=== PATIENT | male | born 1960 | race Caucasian/White ===

== ENCOUNTER 2019-03-08 16:18 | Emergency (ER) | payer BC ==
[2019-03-08] MEDS ORDERED: Succinylcholine 200 MG/10 ML MDV IV ONE (16:19)
--- NOTE | 2019-03-08 16:35 | EDM.PDOC ---
ED HPI GENERAL MEDICAL PROBLEM - General Chief Complaint: CPR in Progress Stated Complaint: CODE BLUE Time Seen by Provider: 03/08/19 16:34 Source of Information: Reports: Patient - History of Present Illness INITIAL COMMENTS - FREE TEXT/NARRATIVE: HISTORY AND PHYSICAL: History of present illness: [Presents with cold blue status, found down in [place] for unknown duration at 3 PM, he arrives shortly after 16: 15 to our ER, he had etomidate on board provided by EMS , they were unable to intubate, we did intubate on arrival O2 sats were50- 60% initially, unknown how long patient's O2 sat was in the 50-60% range , however, O2 sats 90s shortly after intubation. At the initial scene chest compressions were performed by ulcers by the initially found him, EMS arrival he had some pulseless V. tach and was provided a shock of 300 J pt Became hemodynamically stable with pulse rhythm consistent with SVTand V tach rate 160s on arrival we did provide a shock of 200 J, rate improved to 120 patient maintains a pulse O2 sat 95% after intubation Further information, lab is pending at time of dictation, fall drip initiated] after 12 lead ekg performed was obtained, posterior HI om ekg Pressure and arrives on arrival was initially 220s over 140s, this has improved to 150s over 80s at current Review of systems: As per history of present illness and below otherwise all systems reviewed and negative. Past medical history: As per history of present illness and as reviewed below otherwise noncontributory. Surgical history: As per history of present illness and as reviewed below otherwise noncontributory. Social history: No reported history of drug or alcohol abuse. Family history: As per history of present illness and as reviewed below otherwise noncontributory. Physical exam: HEENT: Atraumatic, normocephalic, pupils 2 millimeters, negative for conjunctival pallor or scleral icterus, mucous membranes moist, throat clear, neck supple, nontender, trachea midline. Lungs: Clear to auscultation, breath sounds equal bilaterally, chest nontender. Heart: S1S2, regular, negative for clicks, rubs, or JVD. Abdomen: Soft, nondistended, nontender. Negative for masses or hepatosplenomegaly. Negative for costovertebral tenderness. Pelvis: Stable nontender. Genitourinary: Deferred. Rectal: Deferred. Extremities: Atraumatic, vascular unremarkable. Neuro: GCS 3 on arrival Diagnostics: [CBC CMP UA troponin INR ] Therapeutics: [Lovenox 150 mg] sc Total fall drip Shock of 200 J Symptoms Vancomycin Impression: [Glascow coma scale 3 on arrival Hypoxia improved with intubation Acute coronary syndrome -post cardioversion and BLS likely aspiration hemodynamically dynamic stable at current Pulseless V. tach, V. tach, SVT you version with 300 J, 200 J on arrival Definitive disposition and diagnosis as appropriate pending reevaluation and review of above. - Related Data Allergies Allergy/AdvReac Type Severity Reaction Status Date / Time No Known Allergies Allergy Verified 03/02/15 04:04 Home Meds: Home Meds . [No Known Home Meds] 03/02/15 [History] ED ROS GENERAL - Review of Systems Review Of Systems: See Below ED EXAM, GENERAL - Physical Exam Exam: See Below Course - Orders/Labs/Meds Orders: Active Orders 24 hr Category Date Time Status Chest 1V Frontal [CR] Stat Exams 03/08/19 16:35 Taken ABG [BLOOD GAS ARTERIAL] [BG] Stat Lab 03/08/19 16:34 Ordered CBC WITH AUTO DIFF [HEME] Stat Lab 03/08/19 16:25 Received COMPREHENSIVE METABOLIC PN,CMP [CHEM] Stat Lab 03/08/19 16:25 Received INR,PT,PROTHROMBIN TIME [COAG] Stat Lab 03/08/19 16:25 Received TROPONIN I [CHEM] Stat Lab 03/08/19 16:25 Received UA RFX MARY AND CULT IF INDIC [URIN] Stat Lab 03/08/19 16:44 Ordered Piperacillin/Tazobactam [Piperacil-Tazobact] 3.375 gm Med 03/08/19 16:39 Active Sodium Chloride 0.9% [Normal Saline] 50 ml IV ONETIME Vancomycin 1 gm Med 03/08/19 16:39 Active Sodium Chloride 0.9% [Normal Saline (AdvBag)] 250 ml IV ONETIME Medication Orders Piperacillin Sod/Tazobactam (Sod 3.375 gm/ Sodium Chloride) 50 mls @ 100 mls/ hr IV ONETIME ONE Stop: 03/08/19 17:08 Vancomycin HCl 1 gm/ Sodium (Chloride) 250 mls @ 166 mls/hr IV ONETIME ONE Stop: 03/08/19 18:09 Meds: Medications Generic Name Dose Route Start Last Admin Trade Name Freq PRN Reason Stop Dose Admin Piperacillin Sod/Tazobactam 50 mls @ 100 mls/hr 03/08/19 16:39 Sod 3.375 gm/ Sodium Chloride IV 03/08/19 17:08 ONETIME ONE Vancomycin HCl 1 gm/ Sodium 250 mls @ 166 mls/hr 03/08/19 16:39 Chloride IV 03/08/19 18:09 ONETIME ONE Discontinued Medications Generic Name Dose Route Start Last Admin Trade Name Freq PRN Reason Stop Dose Admin Enoxaparin Sodium 150 mg 03/08/19 16:44 Lovenox SUBCUT 03/08/19 16:45 ONETIME ONE Enoxaparin Sodium Confirm 03/08/19 16:44 Lovenox Administered 03/08/19 16:45 Dose 150 mg .ROUTE .STK-MED ONE Sodium Chloride Confirm 03/08/19 16:42 Normal Saline Administered 03/08/19 16:43 Dose 50 mls @ as directed .ROUTE .STK-MED ONE Sodium Chloride Confirm 03/08/19 16:42 Normal Saline (Advbag) Administered 03/08/19 16:43 Dose 250 mls @ as directed .ROUTE .STK-MED ONE Vancomycin HCl Confirm 03/08/19 16:39 Vancocin Administered 03/08/19 16:40 Dose 1 gm .ROUTE .STK-MED ONE Vancomycin HCl Confirm 03/08/19 16:41 Vancomycin Administered 03/08/19 16:42 Dose 1 gm .ROUTE .STK-MED ONE Departure - Departure Time of Disposition: 17:01 Disposition: Home, Self-Care 01 Condition: Good Clinical Impression: ACS (acute coronary syndrome) - Discharge Information Referrals: PCP,None [Primary Care Provider] - Forms: ED Department Discharge Sepsis Event Note - Focused Exam Date Exam was Performed: 03/08/19 Time Exam was Performed: 16:53 - My Orders Last 24 Hours: My Active Orders 03/08/19 16:25 CBC WITH AUTO DIFF [HEME] Stat COMPREHENSIVE METABOLIC PN,CMP [CHEM] Stat INR,PT,PROTHROMBIN TIME [COAG] Stat TROPONIN I [CHEM] Stat 03/08/19 16:34 ABG [BLOOD GAS ARTERIAL] [BG] Stat 03/08/19 16:35 Chest 1V Frontal [CR] Stat 03/08/19 16:39 Piperacillin/Tazobactam [Piperacil-Tazobact] 3.375 gm Sodium Chloride 0.9% [ Normal Saline] 50 ml IV ONETIME Vancomycin 1 gm Sodium Chloride 0.9% [Normal Saline (AdvBag)] 250 ml IV ONETIME 03/08/19 16:44 UA RFX MARY AND CULT IF INDIC [URIN] Stat - Assessment/Plan Last 24 Hours: My Active Orders 03/08/19 16:25 CBC WITH AUTO DIFF [HEME] Stat COMPREHENSIVE METABOLIC PN,CMP [CHEM] Stat INR,PT,PROTHROMBIN TIME [COAG] Stat TROPONIN I [CHEM] Stat 03/08/19 16:34 ABG [BLOOD GAS ARTERIAL] [BG] Stat 03/08/19 16:35 Chest 1V Frontal [CR] Stat 03/08/19 16:39 Piperacillin/Tazobactam [Piperacil-Tazobact] 3.375 gm Sodium Chloride 0.9% [ Normal Saline] 50 ml IV ONETIME Vancomycin 1 gm Sodium Chloride 0.9% [Normal Saline (AdvBag)] 250 ml IV ONETIME 03/08/19 16:44 UA RFX MARY AND CULT IF INDIC [URIN] Stat
[2019-03-08] MEDS ORDERED: Vancomycin 1 GM AdvVial ONE (16:39)
[2019-03-08] MEDS ORDERED: Piperacillin/Tazobactam 3.375 GM in Sodium Chloride 0.9% 50 ML IV ONE (16:39)
[2019-03-08] MEDS ORDERED: propofoL 100 ML IV SCH (16:40)
[2019-03-08] MEDS ORDERED: Sodium Chloride 0.9% 1,000 ML IV ONE (16:40)
[2019-03-08] MEDS ORDERED: Vancomycin 1 GM SDV ONE (16:41)
[2019-03-08] MEDS ORDERED: Sodium Chloride 0.9% 250 ML ONE (16:42)
[2019-03-08] MEDS ORDERED: Sodium Chloride 0.9% 50 ML ONE (16:42)
[2019-03-08] MEDS ORDERED: Enoxaparin 150 MG/1 ML Syringe ONE (16:44)
[2019-03-08] MEDS ORDERED: Enoxaparin 150 MG/1 ML Syringe SUBCUT ONE (16:44)
--- NOTE | 2019-03-08 16:45 | PCM.SN ---
- Free Text/Narrative Note: Called to the ER for adult male code blue. On EMS arrival Etomidate and Rocuronium were given in the field and EMS was unable to intubate. Currently, nasal airway was in place and BVM respirations. Once transferred to the cart, DL with Shearer 2 yields grade I view. 8.0 ETT was placed without difficulty. + BBS and + EtCO2. Chest xray and ABG pending at this time. SBP was in the 200 's; propofol 50mcg/kg/min IV started by me.
--- NOTE | 2019-03-08 16:55 | CR ---
Indication: Code blue. Intubation. Technique: Chest 1 view Comparison: None. Findings/Impression: Cardiovascular and mediastinum: Endotracheal tube is 3 cm above the lin. NG tube is seen into the stomach. Heart size is normal. Lungs and pleural space: Diffuse bilateral pulmonary edema most prevalent in the upper lobes. No significant effusion and no pneumothorax. Bones and soft tissues: No acute findings. Dictated by Sudheer Mondragon MD @ Mar 08 2019 4:53PM Signed by Dr. Sudheer Mondragon @ Mar 08 2019 4:53PM
[2019-03-08] MEDS ORDERED: fentaNYL 100 MCG/2 ML SDV ONE (17:02)
[2019-03-08] MEDS ORDERED: Midazolam 1 MG/ML 2 ML SDV ONE (17:03)
[2019-03-08 17:17] LABS: BLOOD UREA NITROGEN,BUN 17 mg/dL (7.0-18.0); CARBON DIOXIDE,CO2 22.8 mmol/L (21.0-32.0); CHLORIDE,CL 101 mmol/L (98-107); GLUCOSE RANDOM 237 mg/dL (74-106); POTASSIUM,K 4.2 mmol/L (3.5-5.1); SODIUM,NA 137 mmol/L (136-148)
[2019-03-08 20:39] VITALS: BP 214/139; PULSE 172
== END 2019-03-08 17:10 | disposition home or self-care (01) ==
LOC: MW.ED 16:18
DX: I24.9 Acute ischemic heart disease, unspecified (principal); R40.2432 Glasgow coma scale score 3-8, at arrival to emergency department; I47.2 Ventricular tachycardia; I47.1 Supraventricular tachycardia
CPT/HCPCS: 31500; 36415; 36600; 51702; 71045; 80053; 81001; 82550; 82553; 82803; 83605; 84484; 85025; 85610; 92950; 92960; 93005; 96361; 96372; 96374; 96375; 99291; J0330; 99285